=== PATIENT | female | born 1980 | race Caucasian/White ===

== ENCOUNTER 2017-04-11 01:04 | Emergency (ER) | payer MEDICAID ==
[~2017-04-11] VITALS: Ht 177.8 cm; Wt 80.0 kg
[2017-04-11] MEDS ORDERED: HYDROCODONE/APAP 7.5/325MG 1 TAB TABLET PO ONE (03:15)
[2017-04-11] MEDS ORDERED: KETOROLAC 60MG/2ML VIAL IM ONE (03:15)
[2017-04-11 03:54] VITALS: BP 107/69
== END 2017-04-11 06:21 | disposition home or self-care (01) ==
LOC: ER 01:06
DX: M54.9 Dorsalgia, unspecified (principal); G89.29 Other chronic pain; F12.10 Cannabis abuse, uncomplicated
CPT/HCPCS: 96372; 99283; J1885; Z7610

== ENCOUNTER 2018-08-02 02:22 | Emergency (ER) | payer SELFPAY ==
[~2018-08-02] VITALS: Ht 177.8 cm; Wt 75.0 kg
[2018-08-02] MEDS ORDERED: LIDOCAINE HCL/PF 1% 10 MG/ML 5ML VIAL IJ ONE (03:15)
[2018-08-02 04:41] VITALS: BP 101/65
== END 2018-08-02 05:05 | disposition home or self-care (01) ==
LOC: EDSEX 02:22 → ER 04:57
DX: S51.812A Laceration without foreign body of left forearm, initial encounter (principal); F17.200 Nicotine dependence, unspecified, uncomplicated; W22.8XXA Striking against or struck by other objects, initial encounter; Y93.89 Activity, other specified; Y92.89 Other specified places as the place of occurrence of the external cause; Y99.8 Other external cause status
CPT/HCPCS: 12002; 99283; A4217; J3490; Z7610